=== PATIENT | male | born 1995 | race Caucasian/White ===

== ENCOUNTER 2017-12-12 20:43 | Emergency (ER) | payer OTHER ==
[2017-12-12] MEDS ORDERED: NS 0.9% 1000 ML* 2,000 ML IV ONE (22:20)
[2017-12-12] MEDS ORDERED: Metoclopramide IV* 5 MG/ML 2 ML VIAL IV SLOW PU ONE (22:20)
[2017-12-12] MEDS ORDERED: Morphine INJ* 4 MG/ML 1 ML SYRINGE (NEW SYRINGE VERSION) IV ONE (22:21)
[2017-12-12 22:57] LABS: ABS Basophils 0 10^3/ul (0-0.2); ABS Eosinophils 0 10^3/ul (0-0.6); ABS Lymphocytes 0.4 10^3/ul (1.0-4.8); ABS Monocytes 0.4 10^3/ul (0-0.8); ABS Neutrophils 10.9 10^3/ul (1.5-7.7); ABS Nucleated RBC 0 10^3/ul; Eosinophil % 0.4 % (0-6); Hematocrit 46 % (42-52); Hemoglobin 15.7 g/dl (14.0-18.0); Lymphocyte % 3.2 % (25-47); Mean Corpuscular HGB Conc 34 g/dl (31-36); Mean Corpuscular Hemoglobin 30 pg (27-31); Mean Corpuscular Volume 89 fL (80-94); Mean Platelet Volume 8 um3 (7.4-10.4); Nucleated Red Blood Cells % 0; Platelet Count 222 10^3/ul (150-450); Red Cell Distribution Width 14 % (10.5-15); White Blood Count 11.7 10^3/ul (3.5-10.8)
[2017-12-12 23:11] LABS: EGFR Non-African American 128.3 (>60)
[2017-12-12] MEDS ORDERED: Potassium Chlor TAB* 20 MEQ TAB.ER PO ONE (23:32)
[2017-12-12] MEDS ORDERED: Acetaminophen TAB* 325 MG PO ONE (23:32)
--- NOTE | 2017-12-12 23:36 | ED ---
Mabel Islas Nilda, scribed for Jesse Gallegos MD on 12/12/17 at 2223 . GI/ HPI - HPI Summary HPI Summary: This patient is a 22 year old M presenting to [facility] with a chief complaint of constant sharp abd pain with N/V/D that began a few hours ago. The patient rates the pain 5/10 in severity. Symptoms aggravated by PO intake and alleviated by vomiting. Patient reports vomiting 20x [employer], diarrhea 1x while in ED, and low grade fever (100.7F). Most recent PO intake includes cuisine last night and muffin this morning. Pt states allergies to amoxicillin and penicillin. - History of Current Complaint Chief Complaint: EDNauseaVomitDiarrh Time Seen by Provider: 12/12/17 22:12 Stated Complaint: VOMITING/ ABD PAIN Hx Obtained From: Patient Onset/Duration: Started Hours Ago, Still Present Timing: Constant, Lasting Hours Current Severity: Moderate Pain Intensity: 5 Location of Pain: Diffuse Pain Characteristics: Sharp Associated Signs and Symptoms: Positive: Other: - N/V/D. Vomiting 20x prior to arrival. Diarrhea 1x while in ED. Aggravating Factor(s): Food Alleviating Factor(s): Vomiting - Allergy/Home Medications Allergies/Adverse Reactions: Allergies Allergy/AdvReac Type Severity Reaction Status Date / Time amoxicillin Allergy Unknown Verified 12/12/17 20:49 Reaction Details Penicillins Allergy Unknown Verified 12/12/17 20:49 Reaction Details PMH/Surg Hx/FS Hx/Imm Hx Sensory History: Reports: Other Sensory Impairments - Strabismus resolved Denies: Hx Legally Blind EENT History: Denies: Hx Deafness Infectious Disease History: No Infectious Disease History: Denies: Traveled Outside the [place] in Last 30 Days - Family History Known Family History: Positive: Other - undiagnosed IBS (father, brothers) - Social History Occupation: Employed Full-time Alcohol Use: Occasionally Substance Use Type: Reports: Marijuana Smoking Status (MU): Never Smoked Tobacco Review of Systems Positive: Fever - 100.7 F Positive: Abdominal Pain, Vomiting - 20x , Diarrhea - 1x, Nausea All Other Systems Reviewed And Are Negative: Yes Physical Exam - Summary Physical Exam Summary: VITAL SIGNS: Reviewed. GENERAL: Patient is a well-developed and nourished male who is lying comfortable in the stretcher. Patient is not in any acute respiratory distress. HEAD AND FACE: No signs of trauma. No ecchymosis, hematomas or skull depressions. No sinus tenderness. EYES: PERRLA, EOMI x 2, No injected conjunctiva, no nystagmus. EARS: Hearing grossly intact. Ear canals and tympanic membranes are within normal limits. MOUTH: Oropharynx within normal limits. NECK: Supple, trachea is midline, no adenopathy, no JVD, no carotid bruit, no c- spine tenderness, neck with full ROM. CHEST: Symmetric, no tenderness at palpation LUNGS: Clear to auscultation bilaterally. No wheezing or crackles. CVS: Regular rate and rhythm, S1 and S2 present, no murmurs or gallops appreciated. ABDOMEN: Soft, mild tenderness at RLQ. No signs of distention. No rebound no guarding, and no masses palpated. Bowel sounds are hyperactive. EXTREMITIES: FROM in all major joints, no edema, no cyanosis or clubbing. NEURO: Alert and oriented x 3. No acute neurological deficits. Speech is normal and follows commands. SKIN: Dry and warm Triage Information Reviewed: Yes Vital Signs On Initial Exam: Initial Vitals Temp Pulse Resp BP Pulse Ox 100.7 F 133 18 105/48 98 12/12/17 20:45 12/12/17 20:45 12/12/17 20:45 12/12/17 20:45 12/12/17 20:45 Vital Signs Reviewed: Yes Diagnostics - Vital Signs Vital Signs Temp Pulse Resp BP Pulse Ox 12/12/17 20:45 100.7 F 133 18 105/48 98 - Laboratory Result Diagrams: 12/12/17 22:41 12/12/17 22:41 Lab Statement: Any lab studies that have been ordered have been reviewed, and results considered in the medical decision making process. GIGU Course/Dx - Course Assessment/Plan: Pt is 22 y/o with N/V/D since this morning. Exam duarte, patient has RLQ tenderness and fever. Pt is s/o to Dr. Urban, pending dispo, awaiting CT Abd/Pel. Dx abd pain. - Diagnoses Provider Diagnoses: Abdominal pain Discharge - Discharge Plan Condition: Stable Disposition: OTHER Discharge Disposition Comment: Pt is s/o to Dr. Urban, pending dispo, awaiting CT Abd/Pel. Referrals: No Primary Care Phys,NOPCP [Primary Care Provider] - The documentation as recorded by the Mabel napoles Nilda accurately reflects the service I personally performed and the decisions made by me, Jesse Gallegos MD.
[2017-12-13] MEDS ORDERED: Iohexol 300* (CONTRAST) 10 ML SDV IV ONE (00:57)
[2017-12-13 02:17] LABS: Urine Appearance Clear; Urine Blood Negative (Negative); Urine Color Yellow; Urine Ketones 2+ (Negative); Urine Protein Negative (Negative); Urine Specific Gravity > 1.060 (1.010-1.030); Urine Urobilinogen Negative (Negative)
[2017-12-13 02:36] VITALS: BP 102/59
--- NOTE | 2017-12-13 02:57 | ED ---
Amadeo Islas Jennifer, niranjaned for Eder Urban on 12/13/17 at 0054 . Progress - Progress Note Progress Note: The patient is a sign out from Dr. Gallegos pending CT Abd/Pel. CT Abd/Pel. Interpreted by Dr. Robbin Watson MD. IMPRESSION: Possible diarrheal illness and/or mesenteric adenitis. Course/Dx - Course Course Of Treatment: The patient was a sign out from Dr. Gallegos pending CT Abd/ Pel. The patient is a 22 year old male presents with constant sharp abdominal pain with N/V/D that began a few hours ago. In the ED course the patient was given Tylenol, IV fluids, Reglan, Morphine, and Potassium Chloride. Bloodwork and Urinalysis were obtained. CT Abd/Pel was obtained. The patient is diagnosed with Abdominal pain and Mesenteric adenitis. He is instructed to f/u with PCP in three days. - Diagnoses Provider Diagnoses: Abdominal pain, Mesenteric adenitis The documentation as recorded by the Amadeo napoles Jennifer accurately reflects the service I personally performed and the decisions made by Rajni barba Emmanuel.
--- NOTE | 2017-12-13 09:02 | RAD ---
Indication: Abdominal pain. Contrast: Administered 76.0 ml of OMNIPAQUE 300 mg/ml CT of the abdomen and pelvis was performed after oral and IV contrast administration. Coronal and sagittal reconstructed images were obtained. Comparison is made with previous exam dated October 25, 2014. Lung bases demonstrate no pleural fluid, nodules or masses. Heart is of normal size without evidence of pericardial effusion. The liver is normal in size. No focal lesions or intrahepatic ductal dilatation is noted. The spleen is normal in size. No adrenal masses are noted. The kidneys demonstrate symmetric nephrograms without focal lesions. The retroperitoneal lymphadenopathy is noted. No dilated loops of bowel are noted. CT of the pelvis demonstrates no bowel obstruction with contrast in the right colon. Normal appendix is visualized. Mesenteric lymph nodes are noted which May represent mesenteric adenitis. The prostate and seminal vesicles are unremarkable. IMPRESSION: Normal appendix. No other masses or fluid collections are noted. Possibility of mesenteric adenitis should BE considered.
== END 2017-12-13 02:35 ==
LOC: ED 20:43
DX: I88.0 Nonspecific mesenteric lymphadenitis (principal); Z88.3 Allergy status to other anti-infective agents; Z88.0 Allergy status to penicillin
CPT/HCPCS: 36415; 74177; 80053; 81003; 82150; 83605; 83690; 85025; 86140; 87040; 96361; 96374; 96375; 99284; A9270-GY; J2270; J2765; Q9967